=== PATIENT | female | born 1980 | race Caucasian/White ===

== ENCOUNTER 2020-10-09 12:49 | Observation (INO) | payer OTHER ==
[~2020-10-09] VITALS: Ht 160 cm; Wt 73.9 kg
[~2020-10-09 12:49] MED LIST: ASPIRIN CHEWABL81 MG PO; AUGMENTIN 875-1 EACH PO; AURYXIA210 MG PO; BUMETANIDE2 MG PO; BUSPAR 5MG TABLE5 MG PO; BUTALB-ACETAMI1 EAC1 PO; CARVEDILOL25 MG PO; CATAPRES 0.1MG0.1 MG PO; CLONAZEPAM0.5 MG PO; CLONIDINE1 EAC2 TD; COREG 25MG TAB25 MG PO; DULERA 100 MCG8.8 GM INH; FERROUS SULFAT325 MG PO; FLUZONE QU60 MCG/015 IM; HABITROL 14 MG P1 EA TD; HYDRALAZINE HC100 MG PO; HYDROCODON-ACE1 EAC4 PO; IPRAT-ALBUT 0.5-3 ML INH; KLONOPIN TAB 00.5 MG PO; KLONOPIN1 MG PO; NEPHROCAPS SOFTG1 MG PO; NEPRO; NEURONTIN400 MG PO; NIFEDIPINE ER90 MG PO; NORCO 5-325 TA1 EACH PO; NORVASC 5 MG TAB5 MG PO; PERCOCET 10-321 EACH PO; PERCOCET 5/325 T1 EA PO; PHENERGAN 25 MG25 M1 PO; PHOSLO 667 MG667 MG PO; PLAQUENIL 200200 MG PO; PRILOSEC OTC20 MG PO; PROTONIX40 MG PO; PROVENTIL HFA 61 INH INH; PROZAC20 MG PO; REMERON 15 MG T15 MG PO; REMERON15 MG PO; RENVELA800 MG PO; SEROQUEL100 MG PO; SEROQUEL50 MG PO; TRAZODONE HCL50 MG PO; ULTRAM50 MG PO; VANCOCIN 125MG/2.5ML PO; VENLAFAXINE H37.5 MG PO; VENTOLIN/PROVE0.5 ML INH; VITAMIN D 11000 UNIT PO; VITAMIN D1000 UNI1 PO
[2020-10-09 15:27] LABS: HEMOGLOBIN 8.6 gm/dl (12.3-15.3); RED BLOOD COUNT 2.51 M/UL (4.00-5.10); WHITE BLOOD COUNT 6.6 K/UL (4.5-11.0)
[2020-10-09] MEDS ORDERED: COREG 12.5MG12.5 MG PO (20:26)
[2020-10-09] MEDS ORDERED: NEURONTIN300 MG PO (20:28)
[2020-10-09] MEDS ORDERED: VIBRAMYCIN100 MG PO (20:32)
[2020-10-09] MEDS ORDERED: ACID CONTROLLER20 MG PO (20:34)
[2020-10-09] MEDS ORDERED: BUSPIRONE HCL7.5 MG PO (20:36)
[2020-10-09] MEDS ORDERED: HYDRALAZINE HC100 MG PO (20:37)
[2020-10-09] MEDS ORDERED: INCRUSE ELLI62.5 MCG INH (20:38)
[2020-12-19] MEDS ORDERED: VENTOLIN HFA 66.7 GM INH (09:51)
== END 2020-10-11 13:40 | disposition home or self-care (01) ==
LOC: ER1 12:49 → CDU 18:16 → MED SURG 4 21:42
PROVIDERS: Physician Assistant Medical; ADMIT Internal Medicine
DX: I12.0 Hypertensive chronic kidney disease with stage 5 chronic kidney disease or end stage renal disease (principal); N18.6 End stage renal disease; I27.20 Pulmonary hypertension, unspecified; F31.9 Bipolar disorder, unspecified; M32.9 Systemic lupus erythematosus, unspecified; G89.29 Other chronic pain; M54.9 Dorsalgia, unspecified; Z88.8 Allergy status to other drugs, medicaments and biological substances; Z87.891 Personal history of nicotine dependence; Z99.2 Dependence on renal dialysis; Z20.822 Contact with and (suspected) exposure to COVID-19
CPT/HCPCS: 36415; 71045; 76705; 80053; 82728; 83540; 83550; 83605; 83690; 83735; 84703; 85025; 85610; 90935; 90937; 94640; 94664; 94760; 99285; G0378; J7030; U0002

== ENCOUNTER 2020-10-16 16:15 | Emergency (ER) | payer OTHER ==
[~2020-10-16] VITALS: Ht 160 cm; Wt 71.7 kg
[~2020-10-16 16:15] MED LIST changes: +ACID CONTROLLER20 MG PO; +BUSPIRONE HCL7.5 MG PO; +COREG 12.5MG12.5 MG PO; +INCRUSE ELLI62.5 MCG INH; +NEURONTIN300 MG PO; +VIBRAMYCIN100 MG PO
[2020-10-16] MEDS ORDERED: NEURONTIN600 MG PO (19:12)
[2020-10-16 19:51] LABS: HEMOGLOBIN 9.4 gm/dl (12.3-15.3); RED BLOOD COUNT 2.82 M/UL (4.00-5.10); WHITE BLOOD COUNT 7.6 K/UL (4.5-11.0)
[2020-10-16 21:31] LABS: BUN/CREATININE RATIO 7 (0-10)
[2020-12-19] MEDS ORDERED: VENTOLIN HFA 66.7 GM INH (09:51)
== END 2020-10-17 15:30 | disposition home or self-care (01) ==
LOC: ER1 16:15 → CDU 19:12 → ER1 19:12
PROVIDERS: Internal Medicine; Physician Assistant
DX: I12.9 Hypertensive chronic kidney disease with stage 1 through stage 4 chronic kidney disease, or unspecified chronic kidney disease (principal); N18.9 Chronic kidney disease, unspecified; E87.5 Hyperkalemia; F17.200 Nicotine dependence, unspecified, uncomplicated; Z99.2 Dependence on renal dialysis; Z20.822 Contact with and (suspected) exposure to COVID-19
CPT/HCPCS: 36415; 71045; 80048; 80053; 82550; 82553; 84484; 85025; 90935; 93005; 94644; 96374; 96375; 99285; J0696; J1644; J7030; U0002

== ENCOUNTER 2020-12-19 11:13 | Inpatient (IN) | payer OTHER ==
[~2020-12-19] VITALS: Ht 160 cm; Wt 74.1 kg
[~2020-12-19 11:13] MED LIST changes: +NEURONTIN600 MG PO; +VENTOLIN HFA 66.7 GM INH
[2020-12-19 12:57] LABS: HEMOGLOBIN 12.2 gm/dl (12.3-15.3); RED BLOOD COUNT 3.84 M/UL (4.00-5.10); WHITE BLOOD COUNT 7.5 K/UL (4.5-11.0)
[2020-12-19] MEDS ORDERED: NEURONTIN300 MG PO (16:15)
[2020-12-19] MEDS ORDERED: PROZAC20 MG PO (16:15)
[2020-12-19] MEDS ORDERED: TERAZOSIN HCL5 MG PO (16:16)
[2020-12-19] MEDS ORDERED: ZYPREXA5 MG PO (16:16)
[2020-12-19] MEDS ORDERED: TRANDATE 200 M200 MG PO (16:17)
[2020-12-19] MEDS ORDERED: SODIUM POLYSTY454 GM PO (16:17)
[2020-12-19] MEDS ORDERED: ZOLOFT50 MG PO (16:18)
[2020-12-19] MEDS ORDERED: RENVELA800 MG PO (16:18)
[2020-12-19] MEDS ORDERED: SYMBICORT 80-41 INHA INH (16:51)
[2020-12-19] MEDS ORDERED: CATAPRES-TTS 31 EACH TP (16:53)
[2020-12-19] MEDS ORDERED: PHOSLO 667 MG667 MG PO (16:55)
--- NOTE | 2020-12-19 16:55 | NUR ---
REPORT REC'D, PT TAKEN TO DIALYSIS AT THIS TIME FROM ED
--- NOTE | 2020-12-19 17:25 | NUR ---
TOOK PT SOME PAIN MEDICINE TO DIALYSIS ROOM, PT ALERT AND ORIENTED X4, PERRLA, ROOM AIR, RIGHT IJ TRIPLE LUMEN NOTED WITH CARDENE INFUSING AT 25ML/HR AND VANCOMYCIN AT 125ML/HR, EDEMA NOTED TO RIGHT ARM AND IN FEET/ANKLES, LUNGS CLEAR/DIMINISHED, ABDOMEN SOFT/ROUND/BOWEL SOUNDS PRESENT, PT IN NO DISTRESS AT THIS TIME. WILL CONTINUE TO MONITOR AND PASS ALONG TO ONCOMING RN.
[2020-12-19] MEDS ORDERED: NICOTINE GUM2 MG BU (20:39)
[2020-12-19] MEDS ORDERED: BUTALB-ACETAMI1 EAC1 PO (23:03)
[2020-12-20 04:06] LABS: HEMOGLOBIN 12.3 gm/dl (12.3-15.3); RED BLOOD COUNT 3.99 M/UL (4.00-5.10); WHITE BLOOD COUNT 6.3 K/UL (4.5-11.0)
--- NOTE | 2020-12-20 11:00 | NUR ---
NO CHANGES FROM PREVIOUS ASSESSMENT
--- NOTE | 2020-12-20 13:31 | NUR ---
OB GYN PHYSICIAN ASSISTANT HERE TO GET PT, PT REFUSING TO GO SAYING SHE IS GOING TO SIGN OUT AMA BECAUSE "IT MAKES HER HURT WORSE", DR GARZON MADE AWARE, SAYS SHE WILL COME AND TALK TO HER.
[2020-12-21 02:50] LABS: HEMOGLOBIN 12.5 gm/dl (12.3-15.3); RED BLOOD COUNT 4.08 M/UL (4.00-5.10); WHITE BLOOD COUNT 5.7 K/UL (4.5-11.0)
[2020-12-23] MEDS ORDERED: HYDRALAZINE HCL50 MG PO (15:40)
== END 2020-12-23 16:01 | disposition home or self-care (01) | DRG 602 ==
LOC: ER1 11:13 → CDU 15:34 → PROG CARE 17:11
PROVIDERS: Physician Assistant; ADMIT Family Medicine
PROC: 02HV33Z Insertion of Infusion Device into Superior Vena Cava, Percutaneous Approach (ICD-10-PCS; principal; 2020-12-19)
DX: L03.113 Cellulitis of right upper limb (principal); N18.6 End stage renal disease; I12.0 Hypertensive chronic kidney disease with stage 5 chronic kidney disease or end stage renal disease; E87.5 Hyperkalemia; I27.20 Pulmonary hypertension, unspecified; F17.200 Nicotine dependence, unspecified, uncomplicated; M32.9 Systemic lupus erythematosus, unspecified; F31.9 Bipolar disorder, unspecified; I07.1 Rheumatic tricuspid insufficiency; D53.9 Nutritional anemia, unspecified; Z96.621 Presence of right artificial elbow joint; I16.0 Hypertensive urgency; K74.60 Unspecified cirrhosis of liver; Z96.622 Presence of left artificial elbow joint; Z20.822 Contact with and (suspected) exposure to COVID-19; Z88.6 Allergy status to analgesic agent; Z88.8 Allergy status to other drugs, medicaments and biological substances; Z98.1 Arthrodesis status; Z99.2 Dependence on renal dialysis
CPT/HCPCS: 36415; 71045; 73080; 73200; 80048; 80053; 80202; 82962; 84132; 85025; 85027; 85610; 85652; 86140; 90937; 93971; 94640; 94664; 94760; 96374; 96375; 99285; C1751; J0360; J0696; J1170; J1885; J2270; J2405; J2550; J3370; J7050; J7070; U0002

== ENCOUNTER 2020-12-30 17:40 | Emergency (ER) | payer OTHER ==
[~2020-12-30 17:40] MED LIST changes: +CATAPRES-TTS 31 EACH TP; +HYDRALAZINE HCL50 MG PO; +NICOTINE GUM2 MG BU; +SODIUM POLYSTY454 GM PO; +SYMBICORT 80-41 INHA INH; +TERAZOSIN HCL5 MG PO; +TRANDATE 200 M200 MG PO; +ZOLOFT50 MG PO; +ZYPREXA5 MG PO
[2020-12-30 18:59] LABS: HEMOGLOBIN 10.9 gm/dl (12.3-15.3); RED BLOOD COUNT 3.45 M/UL (4.00-5.10); WHITE BLOOD COUNT 7.4 K/UL (4.5-11.0)
== END 2020-12-30 22:01 | disposition home or self-care (01) ==
LOC: ER1 17:40
PROVIDERS: Family Medicine
DX: G43.909 Migraine, unspecified, not intractable, without status migrainosus (principal); I12.9 Hypertensive chronic kidney disease with stage 1 through stage 4 chronic kidney disease, or unspecified chronic kidney disease; N18.9 Chronic kidney disease, unspecified; F17.210 Nicotine dependence, cigarettes, uncomplicated; Z88.8 Allergy status to other drugs, medicaments and biological substances
CPT/HCPCS: 80053; 82550; 82553; 83874; 84484; 85025; 93005; 96374; 99284

== ENCOUNTER 2021-02-04 19:06 | Observation (INO) | payer OTHER ==
[~2021-02-04] VITALS: Ht 160 cm; Wt 83.7 kg
[2021-02-04 21:01] LABS: HEMOGLOBIN 10.5 gm/dl (12.3-15.3); RED BLOOD COUNT 3.22 M/UL (4.00-5.10); WHITE BLOOD COUNT 6.4 K/UL (4.5-11.0)
[2021-02-04 21:31] LABS: BUN/CREATININE RATIO 8 (0-10)
[2021-02-05] MEDS ORDERED: HYDRALAZINE HC100 MG PO (00:12)
[2021-02-05] MEDS ORDERED: PLAQUENIL 200200 MG PO (00:16)
[2021-02-05] MEDS ORDERED: REMERON 15 MG T15 MG PO (07:42)
[2021-02-05] MEDS ORDERED: ACID CONTROLLER20 MG PO (07:42)
[2021-02-05] MEDS ORDERED: PROZAC20 MG PO (07:42)
[2021-02-05] MEDS ORDERED: ZYPREXA5 MG PO (07:42)
--- NOTE | 2021-02-05 13:15 | NUR ---
APPROX 1115 TODAY, INFORM PATIENT SHE WILL BE DISCHARGED HOME TO FOLLOW UP WITH HER DIALYSIS. SHE STATES SHE JUST WANTS TO AND WANTS TO KILL HERSELF. CALLED [facility], LIANG PUCKETT, VENESSA CALLED SCHEDULED INTERVIEW INFORMATION FAXED.
--- NOTE | 2021-02-05 14:26 | NUR ---
PATIENT STARTS OLAP EVALUATION PER ZOOM MEETING AT 1424.
--- NOTE | 2021-02-05 17:21 | NUR ---
PER [facility]AP RECOMMENDATION. HAVING DIFFICULTY PLACING PATIENT IN A BEHAVIORAL FACILITY WITH DIALYSIS CAPABILITY, WILL REQUIRE AN MD TO MD REQUEST. CALLED DR MOLINA AND HE ASKED THE NUMBER BE TEXTED TO HIM. SENT AT [id number]. [phone]
--- NOTE | 2021-02-05 17:49 | NUR ---
PER MD TO . [facility] [employer] LABORER MD, FAX DOCUMENTS TO [phone]. WILL REVIEW. IF ANY QUESTIONS CALL PSYCH NURSE AT [phone]. CALLED ABDIRASHID AT [facility] TO SEND ANY DOCUMENTS FROM THE [facility] ASSESSMENT.
[2021-02-06 03:24] LABS: HEMOGLOBIN 10.6 gm/dl (12.3-15.3); RED BLOOD COUNT 3.26 M/UL (4.00-5.10)
[2021-02-06 03:26] LABS: WHITE BLOOD COUNT 4.7 K/UL (4.5-11.0)
[2021-02-06 11:15] LABS: HBSAG SCREEN Negative (Negative); HEP A AB, IGM Negative (Negative); HEP B CORE AB, IGM Negative (Negative); HEP C VIRUS AB <0.1 (0.0-0.9)
--- NOTE | 2021-02-06 17:17 | NUR ---
[facility] EVALUATIION REDONE. PER DR NGO PT OK TO BE DC'D AND FOLLOW UP OUTPT PSYCH TREATMENT. DISPOSITION SHEET GIVEN AND SIGNED BY PT AND FAXED BACK TO [facility]. CALLED AND LEFT MESSAGES WITH THE SUGGESTED OUTPT TREATMENTS SIGHTS. MESSAGE STATED THAT THEY WOUDL CALL THE PT BACK FOR AN APT. INSTRUCTED PT OF THIS AND IF SHE DID NOT RECIEVE A CALL BY THE BEGININ OF NEXT WEEK TO CALL THEM. PT STATED THAT SHE UNDERSTOOD AND SHE WOULD
== END 2021-02-06 17:07 | disposition home or self-care (01) ==
LOC: ER1 19:06 → PROG CARE 23:14 → CDU 23:14 → PROG CARE 23:14
PROVIDERS: Internal Medicine; Internal Medicine Nephrology; Physician Assistant; ADMIT Internal Medicine
DX: E87.5 Hyperkalemia (principal); I12.0 Hypertensive chronic kidney disease with stage 5 chronic kidney disease or end stage renal disease; N18.6 End stage renal disease; D63.1 Anemia in chronic kidney disease; M32.14 Glomerular disease in systemic lupus erythematosus; I07.1 Rheumatic tricuspid insufficiency; F31.9 Bipolar disorder, unspecified; R45.851 Suicidal ideations; E83.39 Other disorders of phosphorus metabolism; E16.2 Hypoglycemia, unspecified; Z20.822 Contact with and (suspected) exposure to COVID-19; Z99.2 Dependence on renal dialysis; Z91.15 Patient's noncompliance with renal dialysis; Z87.19 Personal history of other diseases of the digestive system; Z88.6 Allergy status to analgesic agent; Z88.8 Allergy status to other drugs, medicaments and biological substances; Z79.899 Other long term (current) drug therapy
CPT/HCPCS: 0240U; 36415; 71045; 80048; 80053; 80074; 82550; 82553; 82962; 83690; 83735; 83874; 83880; 84100; 84484; 84703; 85025; 90937; 93005; 94640; 94664; 96365; 96375; 99285; G0378; J0610; J2270

== ENCOUNTER 2021-03-24 12:38 | Observation (INO) | payer OTHER ==
[~2021-03-24] VITALS: Ht 160 cm; Wt 79.3 kg
[~2021-03-24 12:38] MED LIST changes: -NICOTINE GUM2 MG BU; -SODIUM POLYSTY454 GM PO; -SYMBICORT 80-41 INHA INH; -TERAZOSIN HCL5 MG PO; -VENTOLIN HFA 66.7 GM INH
[2021-03-24 14:50] LABS: HEMOGLOBIN 10.5 gm/dl (12.3-15.3); RED BLOOD COUNT 3.23 M/UL (4.00-5.10)
[2021-03-24 15:12] LABS: BUN/CREATININE RATIO 6 (0-10)
[2021-03-24] MEDS ORDERED: NEURONTIN300 MG PO (16:15)
[2021-03-24] MEDS ORDERED: RENVELA800 MG PO (16:18)
[2021-03-24] MEDS ORDERED: PROMETHAZINE HC25 M1 PO (18:40)
[2021-03-24] MEDS ORDERED: DOXYCYCLINE HY100 MG PO (18:43)
[2021-03-24] MEDS ORDERED: METOPROLOL SUCC50 MG PO (18:44)
[2021-03-24] MEDS ORDERED: FOLIC ACID 1 MG1 MG PO (18:49)
[2021-03-24] MEDS ORDERED: DIPHENHYDRAMINE25 M2 PO (19:02)
[2021-03-24] MEDS ORDERED: CEFDINIR300 MG PO (21:53)
[2021-03-25 03:30] LABS: HEMOGLOBIN 9.9 gm/dl (12.3-15.3); RED BLOOD COUNT 3.05 M/UL (4.00-5.10); WHITE BLOOD COUNT 3.7 K/UL (4.5-11.0)
[2021-03-31] MEDS ORDERED: CLONIDINE1 EAC2 TD (18:59)
== END 2021-03-25 20:15 | disposition left against medical advice (07) ==
LOC: ER1 12:38 → PROG CARE 17:09 → CDU 17:09 → PROG CARE 20:26
PROVIDERS: Emergency Medicine; ADMIT Internal Medicine
DX: U07.1 COVID-19 (principal); J12.82 Pneumonia due to coronavirus disease 2019; E87.5 Hyperkalemia; I12.0 Hypertensive chronic kidney disease with stage 5 chronic kidney disease or end stage renal disease; N18.6 End stage renal disease; J44.9 Chronic obstructive pulmonary disease, unspecified; M32.9 Systemic lupus erythematosus, unspecified; F31.9 Bipolar disorder, unspecified; E78.5 Hyperlipidemia, unspecified; I07.1 Rheumatic tricuspid insufficiency; K74.60 Unspecified cirrhosis of liver; Z53.29 Procedure and treatment not carried out because of patient's decision for other reasons; Z99.2 Dependence on renal dialysis; Z79.01 Long term (current) use of anticoagulants; Z88.8 Allergy status to other drugs, medicaments and biological substances; Z91.15 Patient's noncompliance with renal dialysis; Z87.891 Personal history of nicotine dependence
CPT/HCPCS: 36415; 36600; 71045; 80053; 82550; 82553; 82803; 82962; 83605; 83615; 83690; 83735; 83874; 83880; 84100; 84484; 84703; 85025; 85379; 87040; 90935; 93005; 94640; 94664; 94760; 96374; 96375; 96376; 99285; G0378; J0360; J0696; J2270; J2405

== ENCOUNTER 2021-03-31 23:32 | Inpatient (IN) | payer OTHER ==
[~2021-03-31] VITALS: Ht 160 cm; Wt 69.9 kg
[~2021-03-31 23:32] MED LIST changes: +CEFDINIR300 MG PO; +DIPHENHYDRAMINE25 M2 PO; +DOXYCYCLINE HY100 MG PO; +FOLIC ACID 1 MG1 MG PO; +METOPROLOL SUCC50 MG PO; +PROMETHAZINE HC25 M1 PO
[2021-04-01] MEDS ORDERED: PLAQUENIL 200200 MG PO (00:16)
[2021-04-01 02:34] LABS: HEMOGLOBIN 10.8 gm/dl (12.3-15.3); RED BLOOD COUNT 3.45 M/UL (4.00-5.10); WHITE BLOOD COUNT 7.6 K/UL (4.5-11.0)
[2021-04-01] MEDS ORDERED: PROAIR DIGIHAL90 MCG PO (09:51)
[2021-04-01] MEDS ORDERED: PROZAC20 MG PO (11:05)
[2021-04-01] MEDS ORDERED: OLANZAPINE5 MG PO (11:05)
[2021-04-01] MEDS ORDERED: HYDRALAZINE HCL50 MG PO (11:09)
[2021-04-01 12:11] LABS: BODY FLUID SOURCE PERITONEAL; RBC (AUTOMATED) < 100 (0-100000); WBC (AUTOMATED) 2 (0-500)
[2021-04-01] MEDS ORDERED: TERAZOSIN HCL5 MG PO (16:16)
[2021-04-01] MEDS ORDERED: SODIUM BICARBO650 MG PO (16:17)
[2021-04-01] MEDS ORDERED: SYMBICORT 80-41 INHA INH (16:51)
[2021-04-01] MEDS ORDERED: PHOSLO 667 MG667 MG PO (16:55)
[2021-04-01] MEDS ORDERED: ELIQUIS 5 MG TAB5 MG PO (18:41)
[2021-04-01] MEDS ORDERED: IPRAT-ALBUT 0.5-3 ML INH (19:04)
[2021-04-01] MEDS ORDERED: FAMOTIDINE20 MG PO (19:47)
[2021-04-01] MEDS ORDERED: NICOTINE GUM2 MG BU (20:39)
[2021-04-02 04:16] LABS: HEMOGLOBIN 10.1 gm/dl (12.3-15.3); RED BLOOD COUNT 3.13 M/UL (4.00-5.10)
[2021-04-02 04:21] LABS: WHITE BLOOD COUNT 10.4 K/UL (4.5-11.0)
[2021-04-03 05:09] LABS: CHLAMYDIA TRACHOMATIS, NAA Negative (Negative); NEISSERIA GONORRHOEAE, NAA Negative (Negative)
[2021-04-04 07:38] LABS: HEMOGLOBIN 9.4 gm/dl (12.3-15.3); RED BLOOD COUNT 2.91 M/UL (4.00-5.10); WHITE BLOOD COUNT 10.5 K/UL (4.5-11.0)
[2021-04-05 06:41] LABS: HEMOGLOBIN 9.8 gm/dl (12.3-15.3); RED BLOOD COUNT 3.19 M/UL (4.00-5.10); WHITE BLOOD COUNT 10.3 K/UL (4.5-11.0)
--- NOTE | 2021-04-05 19:43 | NUR ---
notified DR Norton, that Dr Sebastian stated okay to D/c home ,he will contact dialysis nurse 04/05/21 @8447
[2021-04-06 04:34] LABS: HEMOGLOBIN 10.2 gm/dl (12.3-15.3); RED BLOOD COUNT 3.26 M/UL (4.00-5.10); WHITE BLOOD COUNT 9.9 K/UL (4.5-11.0)
== END 2021-04-06 12:36 | disposition home or self-care (01) | DRG 919 ==
LOC: ER1 23:32 → M/S 04-01 09:20 → CDU 04-01 09:20 → M/S 04-01 09:20
PROVIDERS: Physician Assistant; Physician Assistant Medical; ADMIT Internal Medicine
PROC: 8E0ZXY6 Isolation (ICD-10-PCS; principal; 2021-04-01)
PROC: 3E1M39Z Irrigation of Peritoneal Cavity using Dialysate, Percutaneous Approach (ICD-10-PCS; 2021-04-04)
DX: T85.71XA Infection and inflammatory reaction due to peritoneal dialysis catheter, initial encounter (principal); N18.6 End stage renal disease; U07.1 COVID-19; I12.0 Hypertensive chronic kidney disease with stage 5 chronic kidney disease or end stage renal disease; E87.3 Alkalosis; A08.39 Other viral enteritis; Y83.9 Surgical procedure, unspecified as the cause of abnormal reaction of the patient, or of later complication, without mention of misadventure at the time of the procedure; F31.9 Bipolar disorder, unspecified; I27.20 Pulmonary hypertension, unspecified; M32.14 Glomerular disease in systemic lupus erythematosus; I07.1 Rheumatic tricuspid insufficiency; Z96.621 Presence of right artificial elbow joint; D63.1 Anemia in chronic kidney disease; K74.60 Unspecified cirrhosis of liver; Z99.2 Dependence on renal dialysis; Z87.01 Personal history of pneumonia (recurrent); Z98.890 Other specified postprocedural states; Z86.14 Personal history of Methicillin resistant Staphylococcus aureus infection; Z88.8 Allergy status to other drugs, medicaments and biological substances; Z76.5 Malingerer [conscious simulation]; Z91.14 Patient's other noncompliance with medication regimen; Z79.899 Other long term (current) drug therapy
CPT/HCPCS: 36415; 71045; 74018; 76705; 80048; 80053; 80202; 82803; 83615; 85025; 86140; 87040; 87070; 87205; 87210; 89051; 90937; 94640; 94664; 94760; 96374; 96375; 96376; 99284; G0378; J0692; J2270; J2550; J3370; J7030; J7070; U0002

== ENCOUNTER 2021-05-14 19:20 | Inpatient (IN) | payer OTHER ==
[~2021-05-14] VITALS: Ht 160 cm; Wt 69.4 kg
[~2021-05-14 19:20] MED LIST changes: +ELIQUIS 5 MG TAB5 MG PO; +FAMOTIDINE20 MG PO; +NICOTINE GUM2 MG BU; +OLANZAPINE5 MG PO; +PROAIR DIGIHAL90 MCG PO; +SODIUM BICARBO650 MG PO; +SYMBICORT 80-41 INHA INH; +TERAZOSIN HCL5 MG PO
[2021-05-14 21:19] LABS: RED BLOOD COUNT 2.05 M/UL (4.00-5.10); WHITE BLOOD COUNT 9.1 K/UL (4.5-11.0)
[2021-05-14 21:22] LABS: HEMOGLOBIN 6.3 gm/dl (12.3-15.3)
[2021-05-15 03:23] LABS: HEMOGLOBIN 7.8 gm/dl (12.3-15.3); WHITE BLOOD COUNT 9.5 K/UL (4.5-11.0)
[2021-05-15 03:25] LABS: RED BLOOD COUNT 2.6 M/UL (4.00-5.10)
[2021-05-15] MEDS ORDERED: PROCARDIA XL90 MG PO (13:13)
[2021-05-15] MEDS ORDERED: HYDROCODON-ACE1 EAC4 PO (13:13)
[2021-05-15] MEDS ORDERED: RENVELA800 MG PO (13:14)
[2021-05-15] MEDS ORDERED: LEVETIRACETAM500 MG PO (18:51)
[2021-05-16 07:12] LABS: HEMOGLOBIN 8.2 gm/dl (12.3-15.3); RED BLOOD COUNT 2.86 M/UL (4.00-5.10); WHITE BLOOD COUNT 8.3 K/UL (4.5-11.0)
[2021-05-17 09:13] LABS: HBSAG SCREEN Negative (Negative); HEP A AB, IGM Negative (Negative); HEP B CORE AB, IGM Negative (Negative); HEP C VIRUS AB <0.1 (0.0-0.9)
[2021-05-17 10:14] LABS: HEMOGLOBIN 9.8 gm/dl (12.3-15.3); RED BLOOD COUNT 3.33 M/UL (4.00-5.10); WHITE BLOOD COUNT 8.1 K/UL (4.5-11.0)
[2021-05-21 03:30] LABS: HEMOGLOBIN 8.8 gm/dl (12.3-15.3); RED BLOOD COUNT 2.99 M/UL (4.00-5.10); WHITE BLOOD COUNT 8.7 K/UL (4.5-11.0)
[2021-05-21] MEDS ORDERED: LEVETIRACETAM500 MG PO (10:05)
[2021-05-21] MEDS ORDERED: FORTAZ IV ADV1000 MG IV (10:20)
[2021-05-21] MEDS ORDERED: [UNRECOGNIZED DRUG - CODE] IV (10:20)
== END 2021-05-21 18:45 | disposition home or self-care (01) | DRG 393 ==
LOC: ER1 19:20 → M/S 22:11 → CDU 22:11 → M/S 05-15 14:24
PROVIDERS: Emergency Medicine; Internal Medicine; Internal Medicine Nephrology; Physician Assistant; ADMIT Internal Medicine
PROC: 30233N1 Transfusion of Nonautologous Red Blood Cells into Peripheral Vein, Percutaneous Approach (ICD-10-PCS; principal; 2021-05-14)
PROC: 5A1D70Z Performance of Urinary Filtration, Intermittent, Less than 6 Hours Per Day (ICD-10-PCS; 2021-05-19)
PROC: 5A1D70Z Performance of Urinary Filtration, Intermittent, Less than 6 Hours Per Day (ICD-10-PCS; 2021-05-21)
DX: K91.89 Other postprocedural complications and disorders of digestive system (principal); N18.6 End stage renal disease; I12.0 Hypertensive chronic kidney disease with stage 5 chronic kidney disease or end stage renal disease; Z20.822 Contact with and (suspected) exposure to COVID-19; Y83.8 Other surgical procedures as the cause of abnormal reaction of the patient, or of later complication, without mention of misadventure at the time of the procedure; K52.9 Noninfective gastroenteritis and colitis, unspecified; I07.1 Rheumatic tricuspid insufficiency; I27.20 Pulmonary hypertension, unspecified; M79.7 Fibromyalgia; I16.0 Hypertensive urgency; D63.1 Anemia in chronic kidney disease; M32.9 Systemic lupus erythematosus, unspecified; F31.9 Bipolar disorder, unspecified; Z99.2 Dependence on renal dialysis; Z88.8 Allergy status to other drugs, medicaments and biological substances
CPT/HCPCS: 36415; 76705; 80048; 80053; 80074; 80202; 82728; 83540; 83550; 83690; 83735; 84703; 85025; 85027; 86850; 86900; 86901; 86920; 87040; 90935; 90937; 93005; 94760; 96374; 99285; J0360; J0696; J0713; J2185; J2270; J2405; J3370; J7040; J7070; P9016; U0002

== ENCOUNTER 2021-06-23 15:51 | Inpatient (IN) | payer OTHER ==
[~2021-06-23] VITALS: Ht 160 cm; Wt 75.0 kg
[~2021-06-23 15:51] MED LIST changes: +CARVEDILOL12.5 MG PO; +FORTAZ IV ADV1000 MG IV; +ISOSORBIDE MONO30 MG PO; +LEVETIRACETAM500 MG PO; +NICOTINE GUM2 MG MT; +PAROXETINE HCL20 MG PO; +PROCARDIA XL90 MG PO; +[UNRECOGNIZED DRUG - CODE] IV
[2021-06-23 18:13] LABS: HEMOGLOBIN 8.8 gm/dl (12.3-15.3); RED BLOOD COUNT 2.95 M/UL (4.00-5.10); WHITE BLOOD COUNT 7.8 K/UL (4.5-11.0)
[2021-06-24 05:09] LABS: HEMOGLOBIN 8.7 gm/dl (12.3-15.3); RED BLOOD COUNT 2.91 M/UL (4.00-5.10)
[2021-06-24 05:26] LABS: BUN/CREATININE RATIO 7 (0-10)
[2021-06-25] MEDS ORDERED: HYDRALAZINE HCL50 MG PO (11:06)
[2021-06-25] MEDS ORDERED: LISINOPRIL40 MG PO (11:06)
[2021-06-25] MEDS ORDERED: CARVEDILOL25 MG PO (11:06)
[2021-06-25] MEDS ORDERED: LEVETIRACETAM500 MG PO (11:06)
--- NOTE | 2021-06-25 14:18 | NUR ---
REPORT CALLED FROM [facility] IN DIALYSIS. PATIENT WITH 3L OFF TODAY. PATIENT IS DISCHARGED.
== END 2021-06-25 15:36 | disposition home or self-care (01) | DRG 304 ==
LOC: ER1 15:51 → CDU 21:06 → PROG CARE 06-24 08:09
PROVIDERS: Physician Assistant Medical; ADMIT Internal Medicine
PROC: 5A1D70Z Performance of Urinary Filtration, Intermittent, Less than 6 Hours Per Day (ICD-10-PCS; 2021-06-23)
PROC: B24BZZZ Ultrasonography of Heart with Aorta (ICD-10-PCS; principal; 2021-06-24)
DX: I16.9 Hypertensive crisis, unspecified (principal); N18.6 End stage renal disease; J96.11 Chronic respiratory failure with hypoxia; J44.1 Chronic obstructive pulmonary disease with (acute) exacerbation; Z20.822 Contact with and (suspected) exposure to COVID-19; Z96.698 Presence of other orthopedic joint implants; F31.9 Bipolar disorder, unspecified; M79.7 Fibromyalgia; K74.60 Unspecified cirrhosis of liver; K75.81 Nonalcoholic steatohepatitis (NASH); I45.81 Long QT syndrome; I12.0 Hypertensive chronic kidney disease with stage 5 chronic kidney disease or end stage renal disease; G89.29 Other chronic pain; D63.1 Anemia in chronic kidney disease; F11.10 Opioid abuse, uncomplicated; G43.909 Migraine, unspecified, not intractable, without status migrainosus; L93.0 Discoid lupus erythematosus; Z91.15 Patient's noncompliance with renal dialysis; Z99.81 Dependence on supplemental oxygen; Z87.891 Personal history of nicotine dependence; Z88.8 Allergy status to other drugs, medicaments and biological substances; Z88.6 Allergy status to analgesic agent
CPT/HCPCS: ECHO; 71045; 71275; 80048; 80053; 80061; 82550; 82553; 83735; 83874; 83880; 84100; 84484; 84550; 85025; 85610; 85652; 86140; 90935; 90937; 93005; 93306; 94640; 94664; 94760; 99285; J0360; J1200; J1650; Q9967; U0002

== ENCOUNTER 2021-07-02 13:55 | Inpatient (IN) | payer OTHER ==
[~2021-07-02] VITALS: Ht 165.1 cm; Wt 78.0 kg
[~2021-07-02 13:55] MED LIST changes: +LISINOPRIL40 MG PO
[2021-07-02 15:34] LABS: HEMOGLOBIN 9.7 gm/dl (12.3-15.3); RED BLOOD COUNT 3.14 M/UL (4.00-5.10)
[2021-07-02 17:50] LABS: BUN/CREATININE RATIO 6 (0-10)
--- NOTE | 2021-07-03 00:43 | NUR ---
RECEIVED FROM ER VIA STRETCHER. [employer] SYSTEM INSTALLER HELPER PRESENT AND DIALYSIS WAS STARTED PER ORDER DR GASTELUM .
--- NOTE | 2021-07-03 03:17 | NUR ---
PT STATES SHE GOT UP OUT OF BED D/T HEADACHE . IV IN RIGHT AC PULLED OUT. CARDENE DRIP ON HOLD UNTIL NEW IV SITE OBTAINED VIA ULTRASOUND .
[2021-07-03 05:56] LABS: HEMOGLOBIN 9.4 gm/dl (12.3-15.3); RED BLOOD COUNT 3.07 M/UL (4.00-5.10); WHITE BLOOD COUNT 6.8 K/UL (4.5-11.0)
[2021-07-03] MEDS ORDERED: MIRTAZAPINE15 MG PO (17:03)
[2021-07-04 05:56] LABS: HEMOGLOBIN 9.3 gm/dl (12.3-15.3); RED BLOOD COUNT 2.97 M/UL (4.00-5.10); WHITE BLOOD COUNT 5.4 K/UL (4.5-11.0)
[2021-07-05 10:13] LABS: HBSAG SCREEN Negative (Negative); HEP A AB, IGM Negative (Negative); HEP B CORE AB, IGM Negative (Negative); HEP C VIRUS AB <0.1 (0.0-0.9)
[2021-07-06 04:56] LABS: WHITE BLOOD COUNT 5.7 K/UL (4.5-11.0)
[2021-07-06 04:58] LABS: HEMOGLOBIN 11.6 gm/dl (12.3-15.3); RED BLOOD COUNT 3.7 M/UL (4.00-5.10)
[2021-07-06] MEDS ORDERED: XOPENEX HFA15 GM INH (11:58)
[2021-07-06] MEDS ORDERED: TERAZOSIN HCL5 MG PO (11:58)
[2021-07-06] MEDS ORDERED: AMITRIPTYLINE H25 MG PO (12:02)
== END 2021-07-06 12:47 | disposition home or self-care (01) | DRG 304 ==
LOC: ER1 13:55 → CDU 18:19 → CCU 22:19 → PROG CARE 07-04 23:09
PROVIDERS: Internal Medicine Nephrology; Nurse Practitioner; ADMIT Internal Medicine
PROC: 5A1D70Z Performance of Urinary Filtration, Intermittent, Less than 6 Hours Per Day (ICD-10-PCS; principal; 2021-07-02)
PROC: 5A1D70Z Performance of Urinary Filtration, Intermittent, Less than 6 Hours Per Day (ICD-10-PCS; 2021-07-03)
PROC: 5A1D70Z Performance of Urinary Filtration, Intermittent, Less than 6 Hours Per Day (ICD-10-PCS; 2021-07-04)
PROC: 5A1D70Z Performance of Urinary Filtration, Intermittent, Less than 6 Hours Per Day (ICD-10-PCS; 2021-07-05)
DX: I16.9 Hypertensive crisis, unspecified (principal); N18.6 End stage renal disease; J96.11 Chronic respiratory failure with hypoxia; R18.8 Other ascites; N17.9 Acute kidney failure, unspecified; Z20.822 Contact with and (suspected) exposure to COVID-19; F17.210 Nicotine dependence, cigarettes, uncomplicated; M32.9 Systemic lupus erythematosus, unspecified; F31.9 Bipolar disorder, unspecified; M79.7 Fibromyalgia; K74.60 Unspecified cirrhosis of liver; E16.2 Hypoglycemia, unspecified; K75.81 Nonalcoholic steatohepatitis (NASH); E87.5 Hyperkalemia; I73.00 Raynaud's syndrome without gangrene; J44.9 Chronic obstructive pulmonary disease, unspecified; Z96.612 Presence of left artificial shoulder joint; D63.1 Anemia in chronic kidney disease; G40.909 Epilepsy, unspecified, not intractable, without status epilepticus; G43.909 Migraine, unspecified, not intractable, without status migrainosus; R53.83 Other fatigue; I27.20 Pulmonary hypertension, unspecified; G89.4 Chronic pain syndrome; Z99.2 Dependence on renal dialysis; Z98.890 Other specified postprocedural states; Z79.899 Other long term (current) drug therapy; Z79.52 Long term (current) use of systemic steroids
CPT/HCPCS: 36415; 70450; 70551; 71045; 80048; 80053; 80074; 82533; 82550; 82553; 82962; 83735; 83874; 83880; 84100; 84439; 84443; 84484; 85025; 85610; 90935; 90937; 93005; 94640; 94664; 94760; 96374; 96375; 99285; J0360; J0610; J1200; J2270; J2405; J2930; J7030; U0002

== ENCOUNTER 2021-08-25 18:39 | Observation (INO) | payer OTHER ==
[~2021-08-25] VITALS: Ht 160 cm; Wt 69.9 kg
[~2021-08-25 18:39] MED LIST changes: +AMITRIPTYLINE H25 MG PO; -FAMOTIDINE20 MG PO; +MIRTAZAPINE15 MG PO; +XOPENEX HFA15 GM INH
[2021-08-25 21:25] LABS: HEMOGLOBIN 11.5 gm/dl (12.3-15.3); RED BLOOD COUNT 3.45 M/UL (4.00-5.10)
[2021-08-26] MEDS ORDERED: FAMOTIDINE20 MG PO (19:47)
[2021-08-26] MEDS ORDERED: HYDRALAZINE HC100 MG PO (20:30)
[2021-08-26] MEDS ORDERED: CARDURA 2MG TAB2 MG PO (20:33)
[2021-08-26] MEDS ORDERED: COREG 25MG TAB25 MG PO (20:36)
[2021-08-26] MEDS ORDERED: PROAIR HFA8.5 GM INH (20:46)
[2021-08-26] MEDS ORDERED: CLARITIN10 MG PO (20:54)
[2021-08-26] MEDS ORDERED: IPRAT-ALBUT 0.5-3 ML INH (20:57)
[2021-08-26] MEDS ORDERED: BUTALB-ACETAMI1 EAC1 PO (22:21)
[2021-08-26] MEDS ORDERED: RENVELA800 MG PO (22:30)
[2021-08-27] MEDS ORDERED: AMITRIPTYLINE H25 MG PO (10:48)
[2021-08-27] MEDS ORDERED: LEVETIRACETAM500 MG PO (10:48)
--- NOTE | 2021-08-27 14:24 | NUR ---
PATIENT DISCHARGE NOT SIGNED PATIENT NOT FOUND IN ROOM RETURNING FROM LUNCH WILL CONTINUE TO LOOK FOR PT TO REMOVE IV ACCESS AND GET PT TO SIGN
[2021-10-07] MEDS ORDERED: AMITRIPTYLINE H25 MG PO (10:45)
[2021-10-07] MEDS ORDERED: VITAMIN D21250 MCG PO (11:01)
[2021-10-07] MEDS ORDERED: NIFEDIPINE ER90 MG PO (11:02)
[2021-10-07] MEDS ORDERED: LOKELMA10 GM PO (11:03)
[2021-10-09] MEDS ORDERED: PERCOCET 5/325 T1 EA PO (12:30)
[2021-10-09] MEDS ORDERED: OMNICEF 300 MG300 MG PO (12:30)
== END 2021-08-27 14:25 | disposition left against medical advice (07) ==
LOC: ER1 18:39 → CDU 08-26 00:19 → M/S 08-26 18:14
PROVIDERS: Internal Medicine; Physician Assistant; ADMIT Internal Medicine Infectious Disease
DX: R22.31 Localized swelling, mass and lump, right upper limb (principal); I16.0 Hypertensive urgency; I12.0 Hypertensive chronic kidney disease with stage 5 chronic kidney disease or end stage renal disease; N18.6 End stage renal disease; E87.5 Hyperkalemia; G40.909 Epilepsy, unspecified, not intractable, without status epilepticus; G43.909 Migraine, unspecified, not intractable, without status migrainosus; F31.9 Bipolar disorder, unspecified; K76.0 Fatty (change of) liver, not elsewhere classified; J44.9 Chronic obstructive pulmonary disease, unspecified; K74.60 Unspecified cirrhosis of liver; Z99.2 Dependence on renal dialysis; Z87.891 Personal history of nicotine dependence; Z88.8 Allergy status to other drugs, medicaments and biological substances; Z79.899 Other long term (current) drug therapy; Z20.822 Contact with and (suspected) exposure to COVID-19
CPT/HCPCS: 36415; 71045; 71250; 80048; 80053; 82550; 82553; 83735; 83874; 84100; 84132; 84484; 85025; 90937; 93005; 93971; 94640; 94664; 94760; 96365; 96372; 96374; 96375; 99285; G0378; J0360; J0610; J1200; J1644; J2270; U0002